=== PATIENT | female | born 1985 | race African-American/Black ===

== ENCOUNTER 2017-09-26 09:37 | Emergency (ER) | payer OTHER ==
[~2017-09-26] VITALS: Ht 162.6 cm; Wt 68.0 kg
[2017-09-26] MEDS ORDERED: IRON1TAB4 PO (13:55)
== END 2017-09-26 21:17 | disposition home or self-care (01) ==
LOC: ER 09:37
DX: B34.9 Viral infection, unspecified (principal)

== ENCOUNTER → 2022-02-23 | Emergency (ER) | payer OTHER ==
[~2022-02-23] VITALS: Ht 165.1 cm; Wt 83.0 kg
[~2022-02-23] MED LIST: IBU400 MG; IRON1TAB4 PO
== END | disposition left against medical advice (07) ==
LOC: ER 06:39
DX: R06.00 Dyspnea, unspecified (principal); D64.9 Anemia, unspecified; F41.0 Panic disorder [episodic paroxysmal anxiety]

== ENCOUNTER 2022-03-19 01:32 | Emergency (ER) | payer OTHER ==
[~2022-03-19] VITALS: Ht 162.6 cm; Wt 78.5 kg
[2022-03-19] MEDS ORDERED: AMOX-CLAV 875-1 EACH PO (05:03)
[2022-03-19] MEDS ORDERED: KETO10TA2 PO (05:03)
[2022-03-19] MEDS ORDERED: INTEGRA PLUS C1 EAC1 PO (05:08)
== END 2022-03-19 05:32 ==
LOC: ER 01:32
DX: K08.89 Other specified disorders of teeth and supporting structures (principal); Z91.013 Allergy to seafood